=== PATIENT | male | born 1995 | race Caucasian/White ===

== ENCOUNTER 2023-05-20 16:29 | Emergency (ER) | payer OTHER ==
[~2023-05-20] VITALS: Ht 177.8 cm; Wt 93.2 kg
[2023-05-20 16:38] VITALS: TEMP 98.3
[2023-05-20 16:59] LABS: APPEARANCE,URINE HAZY (CLEAR); BILIRUBIN,URINE NEGATIVE (NEGATIVE); COLOR,URINE YELLOW (YELLOW); GLUCOSE, URINE (UA) NEGATIVE (NEGATIVE); KETONES,URINE NEGATIVE (NEGATIVE); LEUKOCYTE ESTERASE ,URINE LARGE (NEGATIVE); NITRATE,URINE NEGATIVE (NEGATIVE); OCCULT BLOOD,URINE SMALL (NEGATIVE); PROTEIN,URINE 30-70 mg/dL (NEGATIVE); SPECIFIC GRAVITIY, URINE 1.028 (1.003-1.030); UROBILINOGEN,URINE <=1.0 mg/dL (<=1.0)
[2023-05-20 17:09] LABS: BACTERIA,URINE Few /HPF (None Seen); SQUAMOUS EPITHELIAL CELL,UR Rare /LPF (None Seen); WBC,URINE 51-100 /HPF (0-5)
[2023-05-20] MEDS: AZITHROMYCIN 500 MG TABLET PO ONE (18:48)
[2023-05-20] MEDS: CefTRIAXone SODIUM 1 GM/VIAL IM ONE (18:49)
[2023-05-20] MEDS: LIDOCAINE/PF 1% 2 ML VIAL IM ONE (18:49)
[2023-05-20] MEDS ORDERED: CEPH-558 PO (19:04)
[2023-05-20] MEDS ORDERED: DOXY-354 PO (19:04)
[2023-05-20 19:57] VITALS: BP 128/66; PULSE 80; RESP 16
== END 2023-05-20 19:57 | disposition home or self-care (01) ==
LOC: EMS 16:30
DX: N34.2 Other urethritis (principal)
CPT/HCPCS: 99283; 81001; 87086; 87186; 96372; J0696; J3490; Q9967